=== PATIENT | male | born 1960 | race Hispanic/Latino ===

== ENCOUNTER 2018-04-21 21:58 | Emergency (ER) | payer SELFPAY ==
[~2018-04-21] VITALS: Ht 180.3 cm; Wt 79.4 kg
== END 2018-04-21 22:23 | disposition home or self-care (01) ==
LOC: ER 21:58
DX: S60.572A Other superficial bite of hand of left hand, initial encounter (principal); W54.0XXA Bitten by dog, initial encounter; Y93.89 Activity, other specified
CPT/HCPCS: 99282